=== PATIENT | female | born 1950 | race Two or more races ===

== ENCOUNTER 2018-09-03 11:23 | Outpatient (CLI) | payer OTHER | END 2018-09-03 11:29 | disposition home or self-care (01) | LOC: RAD 501 11:23 | DX: M25.562 Pain in left knee (principal); M25.571 Pain in right ankle and joints of right foot ==

== ENCOUNTER 2021-10-19 09:23 | Outpatient (CLI) | payer OTHER | END 2021-10-19 10:12 | disposition home or self-care (01) | LOC: EDSEX 09:23 → RAD 09:23 | PROVIDERS: ATTEND Orthopaedic Surgery | DX: M25.572 Pain in left ankle and joints of left foot (principal) ==

== ENCOUNTER 2021-10-28 12:18 | Outpatient (CLI) | payer OTHER | END 2021-10-28 14:20 | disposition home or self-care (01) | LOC: TOM 12:18 | PROVIDERS: ATTEND Orthopaedic Surgery | DX: M25.572 Pain in left ankle and joints of left foot (principal); M79.672 Pain in left foot ==